=== PATIENT | female | born 1975 | race Hispanic/Latino ===

== ENCOUNTER 2017-05-15 15:19 | Inpatient (IN) | payer BC ==
--- NOTE | 2017-05-15 15:57 | ED PDOC ---
HPI: Abdomen Time Seen by Provider: 05/15/17 15:56 Chief Complaint (Nursing): Abdominal Pain Chief Complaint (Provider): abd pain History Per: Patient Additional Complaint(s): 41-year-old female with history of endometriosis and ovarian cysts presents to emergency department with flareup of pelvic pain that started yesterday. Patient 's uniform designer Dr. Cleveland advised that she come to ED today. She did not take anything for pain because [id number] NSAIDs usually do not help when the pain is this severe. She denies any nausea or vomiting, denies any vaginal bleeding, she rates her current pain as a 9 out of 10. LMP was 2 weeks ago. 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 Past Medical History Reviewed: Historical Data, Nursing Documentation, Vital Signs Vital Signs: Last Vital Signs Temp 98.2 F 05/15/17 15:24 Pulse 71 05/15/17 15:24 Resp 16 05/15/17 15:24 BP 117/72 05/15/17 15:24 Pulse Ox 100 05/15/17 17:34 - Medical History Other PMH: endometriosis, ovarian cysts - Surgical History Other surgeries: Pelvic surgery 5 for endometriosis and ovarian cysts, right hand surgery - Family History Family History: States: No Known Family Hx - Social History Current smoker - smoking cessation education provided: No Alcohol: None Drugs: Denies - Home Medications Home Medications: Ambulatory Orders Medication Instructions Recorded No Known Home Med 05/15/17 - Allergies Allergies/Adverse Reactions: Allergies Allergy/AdvReac Type Severity Reaction Status Date / Time No Known Allergies Allergy Verified 05/15/17 15:24 Review of Systems ROS Statement: Except As Marked, All Systems Reviewed And Found Negative Constitutional: Negative for: Fever Cardiovascular: Negative for: Chest Pain Respiratory: Negative for: Cough Gastrointestinal: Negative for: Nausea, Vomiting Genitourinary Female: Positive for: Pelvic Pain. Negative for: Dysuria, Frequency, Incontinence, Hematuria, Vaginal Discharge, Vaginal Bleeding Physical Exam - Reviewed Nursing Documentation Reviewed: Yes Vital Signs Reviewed: Yes - Physical Exam Appears: Positive for: Well, Non-toxic, No Acute Distress Skin: Negative for: Rash Eye Exam: Positive for: Normal appearance Cardiovascular/Chest: Positive for: Regular Rate, Rhythm Respiratory: Positive for: Normal Breath Sounds Gastrointestinal/Abdominal: Positive for: Bowel Sounds (normal), Tenderness ( Suprapubic region and adnexal regions bilaterally, no distention, rebound or guarding) Back: Negative for: L CVA Tenderness, R CVA Tenderness Extremity: Positive for: Normal ROM Neurologic/Psych: Positive for: Alert, Oriented - Laboratory Results Result Diagrams: 05/15/17 17:59 Urine POC: Negative Urine dip results: Negative for: Leukocyte Esterase, Blood, Nitrate, Ketones, Glucose, Bilirubin, Protein - ECG O2 Sat by Pulse Oximetry: 100 Pulse Ox Interpretation: Normal - Other Rad TV US X-Ray: Read By Radiologist X-Ray Interpretation: see below Medical Decision Making Medical Decision Makin-year-old female with pelvic pain Plan: CBC CMP PT/PTT Type and Screen TV US IVF IV toradol PO tylenol US: 4.5 cm complex left ovarian heterogeneous lesion without clear evidence of vascularity, possible hemorrhagic cyst, 2.2 cm right ovarian follicles/cyst. Call received from Dr. Cleveland, patient's uniform designer. He states to admit patient and start bowel prep. He states to make patient NPO after midnight. Patient is aware of and agrees with admission. Disposition - Clinical Impression Clinical Impression: Intractable abdominal pain, Endometriosis - Patient ED Disposition Is Patient to be Admitted: Yes - Disposition Disposition Time: 17:34 Condition: STABLE - Pt Status Changed To: Hospital Disposition Of: Inpatient - Admit Certification Admit to Inpatient:: After my assessment, the patient will require hospitalization for at least two midnights. This is because of the severity of symptoms shown, intensity of services needed, and/or the medical risk in this patient being treated as an outpatient.
[2017-05-15] MEDS ORDERED: Sodium Chloride 0.9% 1,000 ML IV STA (16:51)
[2017-05-15] MEDS ORDERED: Peg-Electrolyte Oral Soln 4L (Golytely) PO ONE (17:29)
[2017-05-15 18:13] LABS: BASO % 0.4 % (0.0-2.0); EOS % 0.3 % (0.0-4.0); HEMOGLOBIN 12.6 g/dL (12.0-16.0); LYMPH # 2.1 K/uL (1.0-4.3); LYMPH % 27.9 % (20.0-40.0); MEAN CELL VOLUME 84.7 fl (81.0-99.0); MEAN CORPUSCULAR HEMOGLOBIN 27.6 pg (27.0-31.0); MEAN CORPUSCULAR HGB CONC 32.6 g/dL (33.0-37.0); MEAN PLATELET VOLUME 10.7 fl (7.2-11.7); MONO # 0.4 K/uL (0.0-0.8); MONO % 5.4 % (0.0-10.0); RBC 4.58 Mil/uL (3.80-5.20); RED CELL DISTRIBUTION WIDTH 13.2 % (11.5-14.5); WHITE BLOOD COUNT 7.7 K/uL (4.8-10.8)
--- NOTE | 2017-05-15 18:13 | RAD ---
HISTORY: Abdominal pain COMPARISON: No prior. FINDINGS: LUNGS: No active pulmonary disease. PLEURA: No significant pleural effusion identified, no pneumothorax apparent. CARDIOVASCULAR: Normal. OSSEOUS STRUCTURES: No significant abnormalities. VISUALIZED UPPER ABDOMEN: Normal. OTHER FINDINGS: None. IMPRESSION: No active disease.
[2017-05-15 18:23] LABS: PARTIAL THROMBOPLASTIN TIME 29.5 Seconds (25.6-37.1); PROTHROMBIN TIME 10.9 Seconds (9.8-13.1)
--- NOTE | 2017-05-15 18:24 | US ---
HISTORY: left ovarian pain, h/o cyst, rule out torsion COMPARISON: None available. TECHNIQUE: Transvaginal pelvic ultrasound FINDINGS: UTERUS: Measures 7.6 x 4.9 x 4.3 cm. Anteverted. ENDOMETRIUM: Measures 1.2 cm in diameter. CERVIX: No cervical abnormality identified. RIGHT OVARY: Measures 3.4 x 3.2 x 3.0 cm. Blood flow is demonstrated. Follicle/cyst measuring approximately 2.2 cm. LEFT OVARY: Measures 4.4 x 3.6 x 4.8 cm. Blood flow is demonstrated. Complex left ovarian heterogeneous lesion measures approximately 4.3 x 4.5 x 3.6 cm without clear evidence of vascularity, possibly hemorrhagic cyst. FREE FLUID: Small pelvic free fluid. OTHER FINDINGS: None. IMPRESSION: 4.5 cm complex left ovarian heterogeneous lesion without clear evidence of vascularity, possibly hemorrhagic cyst. Recommend clinical correlation and 6 week ultrasound follow-up to assess for resolution. 2.2 cm right ovarian follicle/cyst. Small pelvic free fluid.
[2017-05-15 18:34] LABS: ALB/GLOB RATIO 1.3 (1.0-2.1); ALBUMIN 4.4 g/dL (3.5-5.0); ALT/SGPT 24 U/L (9-52); AST/SGOT 26 U/L (14-36); BLOOD UREA NITROGEN 12 mg/dl (7-17); CALCIUM 9.8 mg/dL (8.4-10.2); GFR AFRICAN-AMERICAN > 60; GFR NON-AFRICAN AMERICAN > 60
[2017-05-16] MEDS ORDERED: Bupivacaine 0.5% Inj(30mL) ONE (08:16)
[2017-05-16] MEDS ORDERED: Succinylcholine 200 mg/10 ml Inj IV ONE ×2 (08:23→08:31)
--- NOTE | 2017-05-16 08:27 | CP.PCM.HP ---
History of Present Illness - History of Present Illness History of Present Illness: patient presents with acute abdominal pain, ovarian cyst , history of multiple surgeries and hospital dmissions , ultrsound reveals presence of overian cysts. free fluid hemorrhagfic rule out ovarian torsion Present on Admission - Present on Admission Any Indicators Present on Admission: Yes History of DVT/PE: No History of Uncontrolled Diabetes: No Urinary Catheter: No Decubitus Ulcer Present: No Review of Systems - Review of Systems Systems not reviewed;Unavailable: Acuity of Condition, Other - Constitutional Constitutional: Chills, Night Sweats - Genitourinary Genitourinary: Dysuria, Flank Pain, Voiding Freq/Small Amts - Reproductive: Female Reproductive:Female: Cycle Variable, Dysmenorrhea, Dyspareunia, Pelvic Pain - Menstruation Menstruation: Heavy Menses, Dysmenorrhea Past Patient History - Tetanus Immunizations Tetanus Immunization: Unknown - Past Medical History & Family History Past Medical History?: No - Past Social History Smoking Status: Never Smoked - MUSCULOSKELETAL/RHEUMATOLOGICAL Hx Falls: No - PSYCHIATRIC Hx Substance Use: No - SURGICAL HISTORY Hx Surgeries: Yes (laparoscopy x 5 for endometriosis severe disease, adhesions) Other/Comment: endometriosis-5x. right finger -sx. cyst removal - ANESTHESIA Hx Anesthesia: Yes Hx Anesthesia Reactions: No Meds Allergies/Adverse Reactions: Allergies Allergy/AdvReac Type Severity Reaction Status Date / Time No Known Allergies Allergy Verified 05/15/17 15:24 Physical Exam - Constitutional Appears: In Acute Distress - Head Exam Head Exam: ATRAUMATIC, NORMAL INSPECTION, NORMOCEPHALIC - Eye Exam Eye Exam: EOMI, Normal appearance, PERRL Pupil Exam: NORMAL ACCOMODATION, PERRL - ENT Exam ENT Exam: Mucous Membranes Moist, Normal Exam - Neck Exam Neck exam: Positive for: Normal Inspection - Respiratory Exam Respiratory Exam: Clear to Auscultation Bilateral, NORMAL BREATHING PATTERN - Cardiovascular Exam Cardiovascular Exam: REGULAR RHYTHM - GI/Abdominal Exam GI & Abdominal Exam: Guarding, Hyperactive Bowel Sounds, Normal Bowel Sounds - Rectal Exam Rectal Exam: NORMAL INSPECTION - Exam Bimanual exam: Uterine Tenderness Results - Vital Signs Recent Vital Signs: Last Vital Signs Temp 98.4 F 05/16/17 08:14 Pulse 55 L 05/16/17 08:14 Resp 18 05/16/17 08:14 BP 95/62 L 05/16/17 08:14 Pulse Ox 98 05/16/17 08:14 - Labs Result Diagrams: 05/15/17 17:59 05/15/17 17:59 Labs: Laboratory Results - last 24 hr 05/15/17 05/15/17 05/15/17 17:45 17:59 17:59 WBC 7.7 RBC 4.58 Hgb 12.6 Hct 38.8 MCV 84.7 MCH 27.6 MCHC 32.6 L RDW 13.2 Plt Count 184 MPV 10.7 Neut % (Auto) 66.0 Lymph % (Auto) 27.9 Charlton % (Auto) 5.4 Eos % (Auto) 0.3 Baso % (Auto) 0.4 Neut # 5.0 Lymph # 2.1 Charlton # 0.4 Eos # 0.0 Baso # 0.0 PT INR APTT Sodium 141 Potassium 3.6 Chloride 104 Carbon Dioxide 27 Anion Gap 14 BUN 12 Creatinine 0.7 Est GFR ( Amer) > 60 Est GFR (Non-Af Amer) > 60 Random Glucose 86 Calcium 9.8 Total Bilirubin 0.7 AST 26 ALT 24 Alkaline Phosphatase 56 Total Protein 7.9 Albumin 4.4 Globulin 3.5 Albumin/Globulin Ratio 1.3 Blood Type B POSITIVE Antibody Screen Negative BBK History Checked No verified bt 05/15/17 17:59 WBC RBC Hgb Hct MCV MCH MCHC RDW Plt Count MPV Neut % (Auto) Lymph % (Auto) Charlton % (Auto) Eos % (Auto) Baso % (Auto) Neut # Lymph # Charlton # Eos # Baso # PT 10.9 INR 1.0 APTT 29.5 Sodium Potassium Chloride Carbon Dioxide Anion Gap BUN Creatinine Est GFR ( Amer) Est GFR (Non-Af Amer) Random Glucose Calcium Total Bilirubin AST ALT Alkaline Phosphatase Total Protein Albumin Globulin Albumin/Globulin Ratio Blood Type Antibody Screen BBK History Checked - Imaging and Cardiology CT scan - pelvis Status: Image reviewed by me (pelvic mass evidence of endometriosis, free fluid rule out ruptured , hemorrhagic cyst) Assessment & Plan (1) Pelvic pain (2) Ovarian benign neoplasm Status: Acute Priority: High (3) Endometriosis interna Status: Acute Priority: High - Assessment and Plan (Free Text) Assessment: acute pelvic pain , multipe surgeries , hospiral admissions for pain , history of endometriosis, possible ovarian cyst rupture, torsion Plan: will proceed with exploratory laparoswcopy, general surgery involved giving surgical history
[2017-05-16] MEDS ORDERED: Midazolam 2 MG/2 ML VIAL ONE ×2 (08:32→11:35)
[2017-05-16] MEDS ORDERED: ePHEDrine 50 mg/ml Inj ONE ×2 (08:32→11:35)
[2017-05-16] MEDS ORDERED: Rocuronium 10 mg/ml (5 ml) ONE ×3 (08:32→11:52)
[2017-05-16] MEDS ORDERED: Lidocaine 4% (Laryng-O-Jet) Kit MM ONE ×2 (08:32→11:35)
[2017-05-16] MEDS ORDERED: Propofol 10 mg/ml Inj (20 ML) ONE ×2 (08:32→11:35)
--- NOTE | 2017-05-16 08:41 | CP.PCM.PN ---
Subjective - Date & Time of Evaluation Date of Evaluation: 05/16/17 Time of Evaluation: 08:38 - Subjective Subjective: abdomino pelvic pain Objective - Vital Signs/Intake and Output Vital Signs (last 24 hours): Temp Pulse Resp BP Pulse Ox 98.4 F 55 L 18 95/62 L 98 05/16/17 08:14 05/16/17 08:14 05/16/17 08:14 05/16/17 08:14 05/16/17 08:14 - Medications Medications: took dulaudid for pain - Labs Labs: 05/15/17 17:59 05/15/17 17:59 PT 10.9 Seconds (9.8-13.1) 05/15/17 17:59 INR 1.0 (0.9-1.2) 05/15/17 17:59 APTT 29.5 Seconds (25.6-37.1) 05/15/17 17:59 - Constitutional Appears: In Acute Distress - Head Exam Head Exam: ATRAUMATIC, NORMAL INSPECTION, NORMOCEPHALIC - Eye Exam Eye Exam: EOMI, Normal appearance, PERRL Pupil Exam: NORMAL ACCOMODATION, PERRL - ENT Exam ENT Exam: Mucous Membranes Moist, Normal Exam - Neck Exam Neck Exam: Full ROM, Normal Inspection. absent: Lymphadenopathy - Respiratory Exam Respiratory Exam: Clear to Ausculation Bilateral, NORMAL BREATHING PATTERN - Cardiovascular Exam Cardiovascular Exam: REGULAR RHYTHM, +S1, +S2. absent: Murmur - Rectal Exam Rectal Exam: Deferred - Exam Bimanual exam: Adenexal Mass, Cervical Motion Tendernes, Uterine Tenderness Assessment and Plan (1) Pelvic pain (2) Ovarian benign neoplasm Status: Acute (3) Endometriosis interna Status: Acute - Assessment and Plan (Free Text) Assessment: persitant pain , symptoms not resolved discussed option of exploratory surgery with patient who agrees risks and benefits discussed including bowel , bladder surgery and need for laparotomy general surgery involved Plan: exploratory laparoscopy
[2017-05-16] MEDS ORDERED: Neostigmine Methylsulfate 3mg/3ml Syringe IV ONE (10:02)
[2017-05-16] MEDS ORDERED: Lactated Ringer's 1,000 ML IV ONE ×3 (10:10→12:30)
[2017-05-16] MEDS ORDERED: Dexamethasone 4 mg/1 ml ONE ×2 (10:45→11:35)
[2017-05-16] MEDS ORDERED: DiphenhydrAMINE 50 mg/ml Inj IVP PRN (13:55)
[2017-05-16] MEDS ORDERED: HYDROmorphone 0.5 mg/0.5 ml ISec ONE (14:00)
[2017-05-16] MEDS: HYDROmorphone 0.5 mg/0.5 ml ISec IVP PRN ×4 (14:00→21:26)
[2017-05-16] MEDS ORDERED: Lactated Ringer's 1,000 ML IV SCH (14:45)
[2017-05-16] MEDS: Lactated Ringer's 1,000 ML IV SCH (14:50)
--- NOTE | 2017-05-16 16:52 | OP ---
PROCEDURE DATE: 05/16/2017 PREOPERATIVE DIAGNOSES: Acute pelvic pain, acute abdominal pain, history of endometriosis, multiple hospital admissions for pain, rule out ruptured ovarian cyst versus appendicitis. POSTOPERATIVE DIAGNOSES: Stage IV endometriosis with appendicitis, extensive pelvic and abdominal and bowel involvement of endometriosis and diaphragmatic endometriosis and bladder endometriosis. PROCEDURE PERFORMED: Emergency laparoscopy, robotic; robotic appendectomy to be dictated separately by Dr. Liao; excision of endometriosis; bilateral ureterolysis; left ovarian cystectomy; left ovarian suspension; cystoscopy with bilateral ureteral catheterization and injection of dye. Dr. Liao will separately dictate the robotic appendectomy, the excision of endometriosis from the pelvic diaphragm and excision of bladder endometriosis. SURGEON: Bishop Cleveland MD. HVAC ENGINEER: Oniel Liao MD and Dr. Greer from general surgery resident. ESTIMATED BLOOD LOSS: Minimal. COMPLICATIONS: None. SAMPLES: Appendix, left ovarian cyst, multiple samples of pelvic endometriosis, periureteral endometriosis from the left and the right, ovarian fossa endometriosis, anterior abdominal endometriosis, anterior bladder mass endometriosis and diaphragmatic pericardial endometriosis. INDICATIONS FOR THE PROCEDURE: The patient is a 41-year-old female with a history of 5 prior surgeries for abdominal pain and endometriosis and multiple hospital admissions for pelvic pain and abdominal pain. The patient presented the day prior to the surgery with severe abdominopelvic pain, not controlled by medication. She was evaluated in the emergency room. Imaging studies revealed presence of an ovarian cyst and free fluid in the pelvis with a potential indication of a ruptured ovarian cyst. She also had right lower quadrant pain suggestive of an acute appendicitis. Given the severity of her symptoms, they were not abated by medication, she received all the narcotics overnight, the patient was counseled and taken to the OR for exploratory laparoscopy. Prior to the surgery, the patient was counseled with regards to risks and benefits of the surgery. She was counseled for multiple procedures including appendectomy, abdominal surgery, ovarian surgery and excision of endometriosis if necessary. DESCRIPTION OF THE PROCEDURE: After adequate anesthesia was obtained, the patient was placed in the dorsal lithotomy position. She was prepped and draped. The surgeon gowned and gloved. Given the massive extensiveness of adhesions, the patient had been counseled for a cystoscopy and stent placement. Under direct visualization, cystoscope was placed into the bladder. The bladder wall appeared to be thickened, but free of masses. Both ureteral ostia were in the normal anatomic position. The left ureter was cannulated with a 5-Kittitian open-ended catheter to the distal ureter and 5 mL of IC-Green were injected. Similarly, on the opposite side on the right hand side, 5 mL of IC-Green were injected in the right distal catheter. AT this point, the instruments were removed and replaced by a 16-Kittitian Quiñones. A speculum was placed in the vagina and the uterine manipulator was placed in the uterus. The attention was on the abdomen. An open laparoscopy was performed with extreme care utilizing standard technique. The peritoneum was entered in a blunt fashion and a cannula was placed. The abdomen was insufflated. Under direct visualization under hyperinsufflation, 3 additional trocars were inserted, right upper quadrant, left mid quadrant #12-Kittitian and the left outer quadrant. At this point, the abdomen was visualized. There were very extensive adhesions. The appendix was pulled into the pelvis with the extensive endometriotic implants and it was dragged from the pelvis all the way across incorporated into the left ovary and stretched out. The was free fluid in the pelvis, hemorrhagic as well as endometriotic. There was a large left ovarian cyst. There were multiple abdominal and pelvic implants of miliary endometriosis. The cul-de-sac was obliterated. There was endometriosis implant on the rectosigmoid. There was endometriosis implant on the bladder. The right ovary otherwise looked normal. Both fallopian tubes look otherwise normal. There was also an endometriosis implant on the diaphragm in the pericardial area. At this point, the appendix was detached from its adhesions to the posterior aspect of the uterus and the ovary and the procedure in the pelvis started. The first part of the procedure involved ureterolysis, bilateral, first on the left hand side. We were starting at the pelvic brim, the peritoneum was elevated. The sigmoid colon was progressively detached from its attachments on the pelvic side wall and turned over with great care to preserve the mesenteric artery and a full dissection was performed of the whole ureter from the pelvic brim al the way down to the crossover of the tunnel. This was a very extensive dissection that would not have been able to perform without fluorescent technology and the IC-Green of the da Alana robot. At this point, after performing a full ureterolysis, the peritoneal wall was progressively dissected off with extreme attention to preserve the hypogastric nerve bundle. Once this large swathe of peritoneum was dissected, the dissection persisted on the left ovarian fossa where a large area of endometriosis deep infiltrative was dissected progressively completely peeling it off the left pelvic sidewall in the ovarian area. The ovary was elevated and suspended utilizing a 2-0 suture and the endometrioma was removed from the ovary and sent to pathology. A frozen section was obtained because it was not clear whether the lesion was benign, but it came back benign endometriosis. Once the left ovary was suspended, again attention was in posterior aspect of the uterus where the obliterated cul-de-sac opened by progressive dissection where the rectum was progressively pulled down posteriorly and the rectovaginal space was opened. At this point, attention was on the right hand side where again starting at the pelvic brim after elevating the right ovary, the ureter was identified and a full dissection of the ureter was performed. Dissection of large swathe of peritoneum, which was sent to pathology containing endometriosis. There was also an area of endometriosis on the ovarian fossa. At this point, a very large area, sample, peritoneum containing thickened endometriosis was sent out en bloc from the left pelvic rim all the way to the rectovaginal area. Once this was done, the consult was passed over to Dr. Liao, who excised some lesions from the anterior rectosigmoid, the anterior bladder and the anterior abdominal wall. Dr. Liao then proceeded to perform the appendectomy as the appendix was visibly inflamed with very deep infiltrating endometriosis lesions and enlarged. Once that was done, the da Alana robot was undocked and redocked in a separate direction and excision of endometriosis implant in the diaphragm by the pericardium was also performed. Dr. Liao will dictate these separately. At this point, it was checked for hemostasis, appeared to be excellent. The da Alana robot was undocked, the instruments were removed. The abdomen desufflated and the incision closed in layers with 0 PDS for the fascia and 4-0 Monocryl for the skin. At the end of the procedure, all tapes and instruments counts were correct. The patient tolerated the procedure well, was taken to the recovery in excellent condition. Bishop Cleveland MD [facility]
[2017-05-17] MEDS: Lactated Ringer's 1,000 ML IV SCH (01:19)
[2017-05-17] MEDS: HYDROmorphone 0.5 mg/0.5 ml ISec IVP PRN ×2 (05:49→10:39)
[2017-05-17 08:00] VITALS: BP 108/67; PULSE 76; RESP 20; TEMP 99.2; O2SAT 95
--- NOTE | 2017-05-17 11:08 | RAD ---
HISTORY: post op eval COMPARISON: Chest radiograph dated 05/15/2017. TECHNIQUE: Chest PA and lateral FINDINGS: LUNGS: No active pulmonary disease. PLEURA: No significant pleural effusion identified. No pneumothorax apparent. CARDIOVASCULAR: Normal. OSSEOUS STRUCTURES: Age-indeterminate anterior wedge deformity of a thoracolumbar junction region vertebral body. VISUALIZED UPPER ABDOMEN: Normal. OTHER FINDINGS: None. IMPRESSION: No active disease. Age-indeterminate anterior wedge deformity of a thoracolumbar junction region vertebral body.
--- NOTE | 2017-05-17 11:15 | RAD ---
HISTORY: post op eval COMPARISON: 05/16/2017 TECHNIQUE: Chest PA and lateral FINDINGS: LUNGS: No active pulmonary disease. PLEURA: No significant pleural effusion identified. No pneumothorax apparent. CARDIOVASCULAR: Normal. OSSEOUS STRUCTURES: No significant abnormalities. VISUALIZED UPPER ABDOMEN: Trace free air beneath right hemidiaphragm consistent with recent laparoscopy OTHER FINDINGS: None. IMPRESSION: Free air beneath right hemidiaphragm consistent with recent laparoscopy. Otherwise unremarkable.
--- NOTE | 2017-05-17 11:24 | CARD ---
APPROVED REPORT EKG Measurement Heart [id number] <Conclusion> Normal sinus rhythm Normal ECG
--- NOTE | 2017-05-17 12:20 | CP.PCM.DIS ---
<Aranza Ball - Last Filed: 05/17/17 12:17> Provider - Provider Date of Admission: 05/15/17 17:18 Attending physician: Bishop Cleveland Primary care physician: Cristofer Consults: None Time Spent in preparation of Discharge (in minutes): 35 Hospital Course - Lab Results Lab Results: Most Recent Lab Values WBC 7.7 K/uL (4.8-10.8) 05/15/17 17:59 RBC 4.58 Mil/uL (3.80-5.20) 05/15/17 17:59 Hgb 12.6 g/dL (12.0-16.0) 05/15/17 17:59 Hct 38.8 % (34.0-47.0) 05/15/17 17:59 MCV 84.7 fl (81.0-99.0) 05/15/17 17:59 MCH 27.6 pg (27.0-31.0) 05/15/17 17:59 MCHC 32.6 g/dL (33.0-37.0) L 05/15/17 17:59 RDW 13.2 % (11.5-14.5) 05/15/17 17:59 Plt Count 184 K/uL (130-400) 05/15/17 17:59 MPV 10.7 fl (7.2-11.7) 05/15/17 17:59 Neut % (Auto) 66.0 % (50.0-75.0) 05/15/17 17:59 Lymph % (Auto) 27.9 % (20.0-40.0) 05/15/17 17:59 [place] % (Auto) 5.4 % (0.0-10.0) 05/15/17 17:59 Eos % (Auto) 0.3 % (0.0-4.0) 05/15/17 17:59 Baso % (Auto) 0.4 % (0.0-2.0) 05/15/17 17:59 Neut # 5.0 K/uL (1.8-7.0) 05/15/17 17:59 Lymph # 2.1 K/uL (1.0-4.3) 05/15/17 17:59 [place] # 0.4 K/uL (0.0-0.8) 05/15/17 17:59 Eos # 0.0 K/uL (0.0-0.7) 05/15/17 17:59 Baso # 0.0 K/uL (0.0-0.2) 05/15/17 17:59 PT 10.9 Seconds (9.8-13.1) 05/15/17 17:59 INR 1.0 (0.9-1.2) 05/15/17 17:59 APTT 29.5 Seconds (25.6-37.1) 05/15/17 17:59 Sodium 141 mmol/l (132-148) 05/15/17 17:59 Potassium 3.6 MMOL/L (3.6-5.0) 05/15/17 17:59 Chloride 104 mmol/L (98-107) 05/15/17 17:59 Carbon Dioxide 27 mmol/L (22-30) 05/15/17 17:59 Anion Gap 14 (10-20) 05/15/17 17:59 BUN 12 mg/dl (7-17) 05/15/17 17:59 Creatinine 0.7 mg/dl (0.7-1.2) 05/15/17 17:59 Est GFR ( Amer) > 60 05/15/17 17:59 Est GFR (Non-Af Amer) > 60 05/15/17 17:59 Random Glucose 86 mg/dL (65-105) 05/15/17 17:59 Calcium 9.8 mg/dL (8.4-10.2) 05/15/17 17:59 Total Bilirubin 0.7 mg/dl (0.2-1.3) 05/15/17 17:59 AST 26 U/L (14-36) 05/15/17 17:59 ALT 24 U/L (9-52) 05/15/17 17:59 Alkaline Phosphatase 56 U/L (38-126) 05/15/17 17:59 Total Protein 7.9 G/DL (6.3-8.2) 05/15/17 17:59 Albumin 4.4 g/dL (3.5-5.0) 05/15/17 17:59 Globulin 3.5 gm/dL (2.2-3.9) 05/15/17 17:59 Albumin/Globulin Ratio 1.3 (1.0-2.1) 05/15/17 17:59 Blood Type B POSITIVE 05/15/17 17:45 Antibody Screen Negative 05/15/17 17:45 BBK History Checked No verified bt 05/15/17 17:45 - Hospital Course Hospital Course: 41F w/PMH sig for endometriosis admitted s/p robotic endometriosis excision of peritoneum and pelvis, appendectomy, and excision of diaphragmatic endometriosis. Pt observed overnight with no problems, pain well controlled, urinating freely, tolerating diet. Ok to d/c home with pain medication as per - scripts in chart. Diagnoses: Endometriosis robotic endometriosis excision of peritoneum and pelvis, appendectomy, and excision of diaphragmatic endometriosis Discharge Exam - Head Exam Head Exam: ATRAUMATIC, NORMAL INSPECTION, NORMOCEPHALIC - Eye Exam Eye Exam: EOMI, Normal appearance - ENT Exam ENT Exam: Mucous Membranes Moist, Normal Exam - Neck Exam Neck exam: Full Rom, Normal Inspection - Respiratory Exam Respiratory Exam: Clear to PA & Lateral, NORMAL BREATHING PATTERN, UNREMARKABLE - Cardiovascular Exam Cardiovascular Exam: REGULAR RHYTHM, +S1, +S2 - GI/Abdominal Exam GI & Abdominal Exam: Normal Bowel Sounds, Tenderness (over incision sites), Unremarkable. absent: Distended, Firm, Guarding, Hernia, Rigid, Soft Additional comments: Surgical sites x 4 with bandaids covering them, only 1 with dried sanguinous strike through. - Extremities Exam Extremities exam: full ROM, normal inspection - Neurological Exam Neurological exam: Alert, CN II-XII Intact, Oriented x3 - Psychiatric Exam Psychiatric exam: Normal Affect, Normal Mood - Skin Skin Exam: Dry, Intact, Normal Color, Warm Discharge Plan - Follow Up Plan Condition: STABLE Disposition: HOME/ ROUTINE Instructions: Oxycodone/Acetaminophen (By mouth), Endometriosis (DC), Cystoscopy (DC), Laparoscopic Appendectomy (DC) Additional Instructions: follow up with Dr. Cleveland 7-10 days. Ok to remove outer bandaids tomorrow. Do not shower until outer bandaids are removed. Under the bandaids there is glue, which will fall off on it's own, do not pick at it. Ok to wash gently over glue with soap and water. Ok to resume normal diet. Refrain from heavy lifting until cleared by Dr. Cleveland. Referrals: Bishop Cleveland [Medical Doctor] - Oniel Liao MD [Medical Doctor] - <Bishop Cleveland - Last Filed: 05/18/17 14:06> Provider - Provider Date of Admission: 05/15/17 17:18 Attending physician: Bishop Cleveland Diagnosis - Discharge Diagnosis (1) Pelvic pain (2) Ovarian benign neoplasm Status: Acute Priority: High (3) Endometriosis interna Status: Acute Priority: High Hospital Course - Lab Results Lab Results: Most Recent Lab Values WBC 7.7 K/uL (4.8-10.8) 05/15/17 17:59 RBC 4.58 Mil/uL (3.80-5.20) 05/15/17 17:59 Hgb 12.6 g/dL (12.0-16.0) 05/15/17 17:59 Hct 38.8 % (34.0-47.0) 05/15/17 17:59 MCV 84.7 fl (81.0-99.0) 05/15/17 17:59 MCH 27.6 pg (27.0-31.0) 05/15/17 17:59 MCHC 32.6 g/dL (33.0-37.0) L 05/15/17 17:59 RDW 13.2 % (11.5-14.5) 05/15/17 17:59 Plt Count 184 K/uL (130-400) 05/15/17 17:59 MPV 10.7 fl (7.2-11.7) 05/15/17 17:59 Neut % (Auto) 66.0 % (50.0-75.0) 05/15/17 17:59 Lymph % (Auto) 27.9 % (20.0-40.0) 05/15/17 17:59 [place] % (Auto) 5.4 % (0.0-10.0) 05/15/17 17:59 Eos % (Auto) 0.3 % (0.0-4.0) 05/15/17 17:59 Baso % (Auto) 0.4 % (0.0-2.0) 05/15/17 17:59 Neut # 5.0 K/uL (1.8-7.0) 05/15/17 17:59 Lymph # 2.1 K/uL (1.0-4.3) 05/15/17 17:59 [place] # 0.4 K/uL (0.0-0.8) 05/15/17 17:59 Eos # 0.0 K/uL (0.0-0.7) 05/15/17 17:59 Baso # 0.0 K/uL (0.0-0.2) 05/15/17 17:59 PT 10.9 Seconds (9.8-13.1) 05/15/17 17:59 INR 1.0 (0.9-1.2) 05/15/17 17:59 APTT 29.5 Seconds (25.6-37.1) 05/15/17 17:59 Sodium 141 mmol/l (132-148) 05/15/17 17:59 Potassium 3.6 MMOL/L (3.6-5.0) 05/15/17 17:59 Chloride 104 mmol/L (98-107) 05/15/17 17:59 Carbon Dioxide 27 mmol/L (22-30) 05/15/17 17:59 Anion Gap 14 (10-20) 05/15/17 17:59 BUN 12 mg/dl (7-17) 05/15/17 17:59 Creatinine 0.7 mg/dl (0.7-1.2) 05/15/17 17:59 Est GFR ( Amer) > 60 05/15/17 17:59 Est GFR (Non-Af Amer) > 60 05/15/17 17:59 Random Glucose 86 mg/dL (65-105) 05/15/17 17:59 Calcium 9.8 mg/dL (8.4-10.2) 05/15/17 17:59 Total Bilirubin 0.7 mg/dl (0.2-1.3) 05/15/17 17:59 AST 26 U/L (14-36) 05/15/17 17:59 ALT 24 U/L (9-52) 05/15/17 17:59 Alkaline Phosphatase 56 U/L (38-126) 05/15/17 17:59 Total Protein 7.9 G/DL (6.3-8.2) 05/15/17 17:59 Albumin 4.4 g/dL (3.5-5.0) 05/15/17 17:59 Globulin 3.5 gm/dL (2.2-3.9) 05/15/17 17:59 Albumin/Globulin Ratio 1.3 (1.0-2.1) 05/15/17 17:59 Blood Type B POSITIVE 05/15/17 17:45 Antibody Screen Negative 05/15/17 17:45 BBK History Checked No verified bt 05/15/17 17:45
--- NOTE | 2017-05-23 08:37 | PCM.OP ---
Operative Report - Operative Report Date of Surgery/Procedure: 05/16/17 Time of Surgery/Procedure: 09:00 Surgeon: Dr. Oniel Liao Network Infrastructure Architect: Dr. Bishop Cleveland Anesthesia/Sedation: general/Dr. Gil Pre-Operative Diagnosis: abdominal pain and endometriosis Post-Operative Diagnosis: abdominal pain and endometriosis involving the rectum , cecum, appendix and diaphragm Indication for Surgery: abdominal pain and endometriosis Operative Findings: Ednometriosis involving the rectum, cecum, appendix and diaphragm Procedure/Operation Description: 1-Diaphragm resection with complex repair. 2- Excision of multiple perirectal endometriosis. 3-cecectomy with appendix. Brief Histroy: This is a 41 year old woman admitted through the emergency department with abdominal pain and endometriosis. Dr. Cleveland asked for intraoperative consultation after intitating the procedure when he discovered difffuse involvement of endometriosis involving the rectum, cecum appendix and right dipahragm. Description of the Procedure: Dr. Clevelnad had already initiated the robotic procedure (separate dictation Dr. Garcia). After taking control of the robotic console with the robot positioned for pelvic surgery the multiple rectal lesions were examined under videoscopy. the three lesions were separate and the first (most proximal) was incided circumferentially with blunt and sharp dissection with the aid of electrocautery. The lesion was excided en- bloc from the rectal wall with meticulous attetnion to hemostasis. The first lesion was appropriately marked adn sent to pathology aas a separate specimen. The other two lesion (each more distal in the rectum) were excided in a similar manneer and marked and sent separately to pathology for anlaysis. Our attention then turned to the cecum and appendix. The mensentery of the appendix was dessicated with electrocautery to the base of the appendix. As this lesion involved both the cecumm and appendix the cecum was stapled with a AME stapler and the the portion of the right colon (cecum) and appendix were removed en-bloc , appropriately marked and sent to pathology as a separate specimen. The robot was then repositioned for the upper abdominal portion of the robotic procedure. With the robot in place the lesions in the diaphragm were clustered near the pericardial/abdominal diaphragm and with blunt and sharp dissection with the aid of electrocautery the lesions were incided circumferentially with particular attention to hemostasis. The lesions were excised en-bloc, appropriately marked and sent to pathology as separate specimens. The defect in the diaphragm was repaired with multiple 3-0 V-Lock sutures in a running overlay fashion to close the diaphram defect. The area was examined and hemostais was deemed adeqaute. With this completed the operation was then turned ocer to Dr. Cleveland (separate dictation Dr. Cleveland). Estimated Blood Loss: 100 cc Complications: none Specimen: 1-multiple rectal endometriosis. 2-cecum and appendix. 3-diaphragm endomatriosis Discharge & Condition: stable
== END 2017-05-17 13:42 | disposition home or self-care (01) | DRG 743 ==
LOC: H.ER 15:19 → H.ERHOLD 17:18 → H.MEDSURG1 20:25
PROVIDERS: ADMIT Obstetrics & Gynecology Reproductive Endocrinology; ATTEND Obstetrics & Gynecology Reproductive Endocrinology
PROC: 0DBW0ZZ Excision of Peritoneum, Open Approach (ICD-10-PCS; 2017-05-16)
PROC: 0TN60ZZ Release Right Ureter, Open Approach (ICD-10-PCS; 2017-05-16)
PROC: 8E0W0CZ Robotic Assisted Procedure of Trunk Region, Open Approach (ICD-10-PCS; 2017-05-16)
PROC: 0TN70ZZ Release Left Ureter, Open Approach (ICD-10-PCS; principal; 2017-05-16 09:00)
PROC: 0UB10ZZ Excision of Left Ovary, Open Approach (ICD-10-PCS; 2017-05-16 09:00)
PROC: 0DTJ0ZZ Resection of Appendix, Open Approach (ICD-10-PCS; 2017-05-16 09:00)
DX: N80.3 Endometriosis of pelvic peritoneum (principal); D27.9 Benign neoplasm of unspecified ovary; N80.5 Endometriosis of intestine; N80.8 Other endometriosis; N80.1 Endometriosis of ovary; N83.202 Unspecified ovarian cyst, left side; N73.6 Female pelvic peritoneal adhesions (postinfective); K37 Unspecified appendicitis